=== PATIENT | female | born 1995 | race Caucasian/White ===

== ENCOUNTER 2018-12-20 17:24 | Emergency (ER) | payer BC ==
--- NOTE | 2018-12-20 17:28 | EDM.PDOC ---
<Mere Cooley - Last Filed: 12/20/18 17:56> ED HPI GENERAL MEDICAL PROBLEM - General Stated Complaint: UTI Time Seen by Provider: 12/20/18 17:28 - History of Present Illness INITIAL COMMENTS - FREE TEXT/NARRATIVE: UA is negative patient is being discharged stable. - Related Data Allergies Allergy/AdvReac Type Severity Reaction Status Date / Time Sulfa (Sulfonamide Allergy Other Verified 12/20/18 17:37 Antibiotics) Home Meds: Home Meds . [No Known Home Meds] 12/20/18 [History] ED ROS GENERAL - Review of Systems Review Of Systems: See Below ED EXAM, RENAL/ - Physical Exam Exam: See Below Course - Vital Signs Last Recorded V/S: Last Vital Signs Temp 96.0 F 12/20/18 17:35 Pulse 94 12/20/18 18:04 Resp 16 12/20/18 18:04 BP 114/78 12/20/18 18:04 Pulse Ox 96 12/20/18 18:04 - Orders/Labs/Meds Labs: Laboratory Tests 12/20/18 Range/Units 17:40 Urine Color YELLOW Urine Appearance CLEAR Urine pH 5.0 (5.0-8.0) Ur Specific Mcnary 1.025 (1.001-1.035) Urine Protein NEGATIVE (NEGATIVE) mg/dL Urine Glucose (UA) NEGATIVE (NEGATIVE) mg/dL Urine Ketones NEGATIVE (NEGATIVE) mg/dL Urine Occult Blood NEGATIVE (NEGATIVE) Urine Nitrite NEGATIVE (NEGATIVE) Urine Bilirubin NEGATIVE (NEGATIVE) Urine Urobilinogen 0.2 (<2.0) EU/dL Ur Leukocyte Esterase NEGATIVE (NEGATIVE) Departure - Departure Time of Disposition: 17:57 Disposition: Home, Self-Care 01 Condition: Good Clinical Impression: Dysuria - Discharge Information *PRESCRIPTION DRUG MONITORING PROGRAM REVIEWED*: No *COPY OF PRESCRIPTION DRUG MONITORING REPORT IN PATIENT MARCELLE: No Instructions: Dysuria Referrals: PCP,Unknown [Primary Care Provider] - Forms: ED Department Discharge Additional Instructions: The following information is given to patients seen in the emergency department who are being discharged to home. This information is to outline your options for follow-up care. We provide all patients seen in our emergency department with a follow-up referral. The need for follow-up, as well as the timing and circumstances, are variable depending upon the specifics of your emergency department visit. If you don't have a primary care physician on staff, we will provide you with a referral. We always advise you to contact your personal physician following an emergency department visit to inform them of the circumstance of the visit and for follow-up with them and/or the need for any referrals to a consulting specialist. The emergency department will also refer you to a specialist when appropriate. This referral assures that you have the opportunity for follow-up care with a specialist. All of these measure are taken in an effort to provide you with optimal care, which includes your follow-up. Under all circumstances we always encourage you to contact your private physician who remains a resource for coordinating your care. When calling for follow-up care, please make the office aware that this follow-up is from your recent emergency room visit. If for any reason you are refused follow-up, please contact the [facility] Emergency Department at and asked to speak to the emergency department charge nurse. Take meds as directed, follow up with your primary care physician, return to ER if symptoms worsen or change. [facility] [place] [id number] <Cherrie Mares E - Last Filed: 12/21/18 10:42> ED HPI GENERAL MEDICAL PROBLEM - General Source of Information: Reports: Patient History Limitations: Reports: No Limitations - History of Present Illness INITIAL COMMENTS - FREE TEXT/NARRATIVE: HISTORY AND PHYSICAL: History of present illness: Patient is a 23-year-old female who presents to the emergency room with complaints of dysuria and left low abdominal pain. She states that she was recently see by OBGYN and had full work up for LLQ pain, but continues to have discomfort. Patient denies any fever, chills, headache, change in vision, syncope or near syncope. Denies any chest pain, back pain, shortness of breath or cough. Denies any nausea, vomiting, diarrhea, constipation. Has not noted any blood in urine or stool. Patient has been eating and drinking appropriately. Review of systems: As per history of present illness and below otherwise all systems reviewed and negative. Past medical history: As per history of present illness and as reviewed below otherwise noncontributory. Surgical history: As per history of present illness and as reviewed below otherwise noncontributory. Social history: See social history for further information Family history: As per history of present illness and as reviewed below otherwise noncontributory. Physical exam: General: Well-developed and well-nourished 23-year-old female. Alert and oriented. Nontoxic appearing and in no acute distress. HEENT: Atraumatic, normocephalic, pupils equal and reactive bilaterally, negative for conjunctival pallor or scleral icterus, mucous membranes moist, trachea midline. No drooling or trismus noted. No meningeal signs. No hot potato voice noted. Lungs: Clear to auscultation, breath sounds equal bilaterally, chest nontender. Heart: S1S2, regular rate and rhythm without overt murmur Abdomen: Soft, nondistended, nontender. Negative for masses or hepatosplenomegaly. Negative for costovertebral tenderness. Pelvis: Stable nontender. Skin: Intact, warm, dry. No lesions or rashes noted. Extremities: Atraumatic, moves all extremities per self without difficulty or deficits, negative for cords or calf pain. Neurovascular unremarkable. Neuro: Awake, alert, oriented. Cranial nerves II through XII unremarkable. Cerebellum unremarkable. Motor and sensory unremarkable throughout. Exam nonfocal. Notes: Supportive care measures were reviewed and discussed. Voices understanding and is agreeable to plan of care. Denies any further questions or concerns at this time. Diagnostics: UA Therapeutics: None Prescription: None Impression: Dysuria Plan: 1. Please use Tylenol and/or Ibuprofen as needed for pain and fever management. 2. Get plenty of Rest. Encourage fluids to prevent dehydration. 3. Please follow up with your primary care provider. Return to the ED as needed as discussed. Definitive disposition and diagnosis as appropriate pending reevaluation and review of above. Left Lower Abdomen Pain Score (Numeric/FACES): 7 Course - Vital Signs Last Recorded V/S: Last Vital Signs Temp 96.0 F 12/20/18 17:35 Pulse 94 12/20/18 18:04 Resp 16 12/20/18 18:04 BP 114/78 12/20/18 18:04 Pulse Ox 96 12/20/18 18:04 - Orders/Labs/Meds Labs: Laboratory Tests 12/20/18 Range/Units 17:40 Urine Color YELLOW Urine Appearance CLEAR Urine pH 5.0 (5.0-8.0) Ur Specific Mcnary 1.025 (1.001-1.035) Urine Protein NEGATIVE (NEGATIVE) mg/dL Urine Glucose (UA) NEGATIVE (NEGATIVE) mg/dL Urine Ketones NEGATIVE (NEGATIVE) mg/dL Urine Occult Blood NEGATIVE (NEGATIVE) Urine Nitrite NEGATIVE (NEGATIVE) Urine Bilirubin NEGATIVE (NEGATIVE) Urine Urobilinogen 0.2 (<2.0) EU/dL Ur Leukocyte Esterase NEGATIVE (NEGATIVE)
== END 2018-12-20 18:05 | disposition home or self-care (01) ==
LOC: MW.ED 17:24
DX: R30.0 Dysuria (principal); R10.32 Left lower quadrant pain
CPT/HCPCS: 81003; 99282; 99284

== ENCOUNTER 2019-01-26 10:39 | Day surgery (SDC) | payer BC ==
[~2019-01-26 10:39] MED LIST: Lactated Ringers 1,000 ML IV SCH; Lidocaine 2% 5 ML SDV ONE; Midazolam 1 MG/ML 2 ML SDV ONE; Propofol 200 MG/20 ML SDV ONE; Sodium Chloride 0.9% 10 ML SDV IV PRN; Sodium Chloride 0.9% 10 ML Syringe FLUSH PRN; Sodium Chloride 0.9% 2.5 ML Syringe FLUSH PRN; fentaNYL 100 MCG/2 ML SDV ONE
--- NOTE | 2019-01-26 11:24 | PCM.PREANE ---
Preanesthetic Assessment - Anesthesia/Transfusion/Family Hx Anesthesia History: Prior Anesthesia Without Reaction Family History of Anesthesia Reaction: No Transfusion History: No Prior Transfusion(s) - Review of Systems General: No Symptoms Pulmonary: No Symptoms Cardiovascular: No Symptoms Gastrointestinal: Difficulty Swallowing Neurological: No Symptoms Other: Reports: None - Physical Assessment NPO Status Date: 01/25/19 Height: 5 ft 6 in Weight: 92.533 kg ASA Class: 1 Mental Status: Alert & Oriented x3 Airway Class: Mallampati = 2 Dentition: Reports: Normal Dentition ROM/Head Extension: Full Lungs: Clear to Auscultation, Normal Respiratory Effort Cardiovascular: Regular Rate, Regular Rhythm - Lab Values: Laboratory Last Values Urine HCG, Qual NEGATIVE (NEGATIVE) 01/26/19 10:35 - Allergies Allergies/Adverse Reactions: Allergies Allergy/AdvReac Type Severity Reaction Status Date / Time Sulfa (Sulfonamide Allergy Swelling Verified 01/22/19 11:36 Antibiotics) - Acknowledgements Anesthesia Type Planned: General Anesthesia Pt an Appropriate Candidate for the Planned Anesthesia: Yes Alternatives and Risks of Anesthesia Discussed w Pt/Guardian: Yes Pt/Guardian Understands and Agrees with Anesthesia Plan: Yes Additional Comments: PLAN: tiva PreAnesthesia Questionnaire - Past Health History Medical/Surgical History: Denies Medical/Surgical History HEENT History: Reports: None Cardiovascular History: Reports: None Respiratory History: Reports: Sleep Apnea Other Respiratory History: "mild sleep apnea" does not use CPAP Gastrointestinal History: Reports: Other (See Below) Other Gastrointestinal History: dysphagia Genitourinary History: Reports: Renal Calculus Musculoskeletal History: Reports: Back Pain, Chronic Neurological History: Reports: Concussion Psychiatric History: Reports: None Endocrine/Metabolic History: Reports: Obesity/BMI 30+ Hematologic History: Reports: None Immunologic History: Reports: None Oncologic (Cancer) History: Reports: None Dermatologic History: Reports: None - Past Surgical History Head Surgeries/Procedures: Reports: None HEENT Surgical History: Reports: None Cardiovascular Surgical History: Reports: None Respiratory Surgical History: Reports: None GI Surgical History: Reports: Appendectomy, Bariatric Procedure, Cholecystectomy , EGD, Other (See Below) Other GI Surgeries/Procedures: ingrid-en-Y gastric bypass, EGD with dilation x5 Endocrine Surgical History: Reports: None Neurological Surgical History: Reports: None Musculoskeletal Surgical History: Reports: None Oncologic Surgical History: Reports: None Dermatological Surgical History: Reports: None - SUBSTANCE USE Smoking Status *Q: Former Smoker Recreational Drug Use History: No - HOME MEDS Home Medications: Home Meds Levonorgestrel [Ellen] 1 device VAG ONETIME 01/20/19 [History] - CURRENT (IN HOUSE) MEDS Current Meds: Current Medications Lactated Ringer's (Ringers, Lactated) 1,000 mls @ 125 mls/hr IV ASDIRECTED KATHE Sodium Chloride (Saline Flush) 10 ml FLUSH ASDIRECTED PRN PRN Reason: Keep Vein Open Sodium Chloride (Saline Flush) 2.5 ml FLUSH ASDIRECTED PRN PRN Reason: Keep Vein Open Sodium Chloride (Saline Flush) 10 ml FLUSH ASDIRECTED PRN PRN Reason: Keep Vein Open Sodium Chloride (Saline Flush) 2.5 ml FLUSH ASDIRECTED PRN PRN Reason: Keep Vein Open Sodium Chloride (Normal Saline) 10 ml IV ASDIRECTED PRN PRN Reason: IV Use Discontinued Medications Fentanyl (Sublimaze) Confirm Administered Dose 100 mcg .ROUTE .STK-MED ONE Stop: 01/26/19 07:37 Lidocaine (Xylocaine-Mpf 2%) Confirm Administered Dose 5 ml .ROUTE .STK-MED ONE Stop: 01/26/19 07:37 Midazolam HCl (Versed 1 Mg/Ml) Confirm Administered Dose 2 mg .ROUTE .STK-MED ONE Stop: 01/26/19 07:37 Propofol (Diprivan 20 Ml) Confirm Administered Dose 400 mg .ROUTE .STK-MED ONE Stop: 01/26/19 07:37
--- NOTE | 2019-01-26 12:41 | PCM.OPNOTE ---
- General Post-Op/Procedure Note Date of Surgery/Procedure: 01/26/19 Operative Procedure(s): Diagnostic EGD Findings: Normal esophagus, normal GJ anastomosis Pre Op Diagnosis: Dysphagia Post-Op Diagnosis: same Anesthesia Technique: MAC Primary Surgeon: Cynthia Edward Condition: Good
--- NOTE | 2019-01-26 12:42 | PCM48HPAN ---
Post Anesthesia Note - EVALUATION WITHIN 48HRS OF ANESTHETIC Vital Signs in Normal Range: Yes Patient Participated in Evaluation: Yes Respiratory Function Stable: Yes Airway Patent: Yes Cardiovascular Function Stable: Yes Hydration Status Stable: Yes Pain Control Satisfactory: Yes Nausea and Vomiting Control Satisfactory: Yes Mental Status Recovered: Yes Vital Signs: Last Vital Signs Temp 97.2 F 01/26/19 12:19 Pulse 60 01/26/19 12:34 Resp 9 L 01/26/19 12:34 BP 100/63 01/26/19 12:34 Pulse Ox 100 01/26/19 12:34
--- NOTE | 2019-01-26 12:42 | PCM.POSTAN ---
POST ANESTHESIA ASSESSMENT - MENTAL STATUS Mental Status: Alert, Oriented - VITAL SIGNS Vital Signs: Last Vital Signs Temp 97.2 F 01/26/19 12:19 Pulse 60 01/26/19 12:34 Resp 9 L 01/26/19 12:34 BP 100/63 01/26/19 12:34 Pulse Ox 100 01/26/19 12:34 - RESPIRATORY Respiratory Status: Respiratory Rate WNL, Airway Patent, O2 Saturation Stable - CARDIOVASCULAR CV Status: Pulse Rate WNL, Blood Pressure Stable - GASTROINTESTINAL GI Status: No Symptoms - POST OP HYDRATION Hydration Status: Adequate & Stable
--- NOTE | 2019-01-28 15:06 | OR ---
SURGEON: CYNTHIA EDWARD MD DATE OF PROCEDURE: 01/26/2019 PREOPERATIVE DIAGNOSIS: Dysphagia. POSTOPERATIVE DIAGNOSIS: Dysphagia. PROCEDURE PERFORMED: Diagnostic esophagogastroduodenoscopy with biopsies. PRIMARY SURGEON: Cynthia Edward MD. ANESTHESIA: MAC. INSTRUMENT USED: Olympus endoscope. EXTENT OF EXAM: 50 cm past the teeth into the Grace limb. PREPARATION: Good. LIMITATIONS: None. INDICATIONS: The patient is a 23-year-old female who presents with dysphagia. Her past medical history significant for Grace-en-Y gastric bypass. The patient had a CT scan of the abdomen, which showed no significant pathology to explain her dysphagia. I explained the need for a diagnostic EGD. I explained the procedure, expected perioperative course, and risks including bleeding, infection, or damage to surrounding structures including perforation. The patient verbalized understanding and wishes to proceed. PROCEDURE IN DETAIL: The patient was brought into the endoscopy suite and placed in a beach chair position. A time-out was completed verifying the patient's name, age, date of , allergies, and procedure to be performed. Monitored anesthesia care was induced and a bite block was placed in the patient's mouth. Continuous oxygen was provided via nasal cannula throughout the procedure. After adequate sedation was achieved, a well-lubricated endoscope was placed in the patient's mouth and advanced under direct visualization into the Grace limb. This appeared normal, healthy, and pink. I was able to go 50 cm past the teeth. A photograph of this was taken. The scope was then fully withdrawn while examining the color, texture, anatomy, and integrity of mucosa of the upper GI tract. The GJ anastomosis appeared healthy, patent with no evidence of ulceration. The gastric pouch itself showed no signs of inflammation or ulceration. A biopsy was taken of the gastric pouch and sent to Pathology labeled as stomach biopsy. The scope was brought into the distal esophagus. A photograph was taken of the Z-line. This appeared normal. The distal esophageal mucosa did not appear grossly inflamed. A biopsy of it was taken and sent to Pathology labeled as distal esophagus. The remainder of the esophagus appeared normal and I saw no other evidence of pathology. The scope was removed and the procedure terminated. The patient tolerated the procedure well and was transferred to the PACU in stable condition. ENDOSCOPIC DIAGNOSIS: Dysphagia. RECOMMENDATIONS: Follow up in clinic in 2 weeks. LAMIN KRAMER /[id number]
== END 2019-01-26 13:30 | disposition home or self-care (01) ==
LOC: MW.SDS 10:39
PROVIDERS: ATTEND Surgery
DX: R13.10 Dysphagia, unspecified (principal); Z88.2 Allergy status to sulfonamides
CPT/HCPCS: 43239; 81025; J2001; J2250; J2704; J3010; J7120

== ENCOUNTER 2019-04-08 18:15 | Emergency (ER) | payer BC ==
--- NOTE | 2019-04-08 18:28 | EDM.PDOC ---
ED HPI GENERAL MEDICAL PROBLEM - General Chief Complaint: Neck Problem Stated Complaint: pain down left arm Time Seen by Provider: 04/08/19 18:28 Source of Information: Reports: Patient History Limitations: Reports: No Limitations - History of Present Illness INITIAL COMMENTS - FREE TEXT/NARRATIVE: Patient is a 23-year-old female who is complaining of having left-sided upper back pain with radiculopathy to her left upper extremity. This is been going on chronically but is been worse recently. Patient feels she made her symptoms worse when she turned her head suddenly today. Patient has a history of spinal stenosis. She has been seen by a neurologist and supposed to have a mental stimulator placed. Patient has been doing no treatment for above symptoms recently. She has recently moved to the area and has no provider. Patient also states that occasionally when she sleeps she will wake up with lower extremity numbness and has been incontinent of her urine at times though has no symptoms of this currently and has no saddle numbness consistent with cauda equina. Onset: Today Duration: Getting Worse Location: Reports: Back Quality: Reports: Burning, Throbbing Severity: Severe Improves with: Reports: None Worsens with: Reports: Movement Context: Reports: Activity Associated Symptoms: Reports: No Other Symptoms neck Pain Score (Numeric/FACES): 2 - Related Data Allergies Allergy/AdvReac Type Severity Reaction Status Date / Time Sulfa (Sulfonamide Allergy Swelling Verified 01/22/19 11:36 Antibiotics) Home Meds: Home Meds Cyclobenzaprine [Flexeril] 10 mg PO TID PRN #14 tab 04/08/19 [Rx] Hydrocodone/Acetaminophen [[place] 5-325 Tablet] 1 each PO Q6HR PRN #14 tablet [Rx] Lidocaine 5% [Lidoderm 5%] 1 patch TOP DAILY PRN #14 patch 04/08/19 [Rx] predniSONE 20 mg PO WITHBREAKFAST #7 tab 04/08/19 [Rx] Past Medical History - Past Health History Medical/Surgical History: Denies Medical/Surgical History HEENT History: Reports: None Cardiovascular History: Reports: None Respiratory History: Reports: Sleep Apnea Other Respiratory History: "mild sleep apnea" does not use CPAP Gastrointestinal History: Reports: Other (See Below) Other Gastrointestinal History: dysphagia Genitourinary History: Reports: Renal Calculus Musculoskeletal History: Reports: Back Pain, Chronic Neurological History: Reports: Concussion Psychiatric History: Reports: None Endocrine/Metabolic History: Reports: Obesity/BMI 30+ Hematologic History: Reports: None Immunologic History: Reports: None Oncologic (Cancer) History: Reports: None Dermatologic History: Reports: None - Past Surgical History Head Surgeries/Procedures: Reports: None HEENT Surgical History: Reports: None Cardiovascular Surgical History: Reports: None Respiratory Surgical History: Reports: None GI Surgical History: Reports: Appendectomy, Bariatric Procedure, Cholecystectomy , EGD, Other (See Below) Other GI Surgeries/Procedures: ingrid-en-Y gastric bypass, EGD with dilation x5 Endocrine Surgical History: Reports: None Neurological Surgical History: Reports: None Musculoskeletal Surgical History: Reports: None Oncologic Surgical History: Reports: None Dermatological Surgical History: Reports: None Social & Family History - Family History Family Medical History: Noncontributory ED ROS GENERAL - Review of Systems Review Of Systems: See Below Constitutional: Reports: No Symptoms HEENT: Reports: No Symptoms Respiratory: Reports: No Symptoms Cardiovascular: Reports: No Symptoms Endocrine: Reports: No Symptoms GI/Abdominal: Reports: No Symptoms : Reports: No Symptoms. Denies: Incontinence Musculoskeletal: Reports: Neck Pain, Back Pain (Left-sided) Skin: Reports: No Symptoms Neurological: Reports: Paresthesia (Left upper extremity.) Psychiatric: Reports: No Symptoms ED EXAM, UPPER BACK/NECK PAIN - Physical Exam Exam: See Below Exam Limited By: No Limitations General Appearance: Alert, Mild Distress Head Exam: Atraumatic, Normocephalic Neck Exam: Limited Range of Motion, Muscle Spasm (Left-sided greater than right. ), Paraspinous Muscle Tender Cardiovascular/Respiratory: Regular Rate, Rhythm Back Exam: Decreased Range of Motion, Muscle Spasm, Paraspinal Tenderness (Left- sided). No: Vertebral Tenderness Extremities: Normal Inspection Neurologic: No Motor/Sensory Deficits Psychiatric: Depressed Mood Skin Exam: Normal Color Course - Vital Signs Last Recorded V/S: Last Vital Signs Temp 36.6 C 04/08/19 18:21 Pulse 97 04/08/19 18:21 Resp 20 04/08/19 18:21 BP 145/89 H 04/08/19 18:21 Pulse Ox 99 04/08/19 18:21 - Orders/Labs/Meds Orders: Active Orders 24 hr Category Date Time Status Lidocaine 5% [Lidoderm 5%] Med 04/08/19 18:37 Once 700 mg TOP ONETIME ONE predniSONE Med 04/08/19 18:37 Once 60 mg PO ONETIME ONE Medication Orders Lidocaine (Lidoderm 5%) 700 mg TOP ONETIME ONE Stop: 04/08/19 18:38 Prednisone (Prednisone) 60 mg PO ONETIME ONE Stop: 04/08/19 18:38 Meds: Medications Generic Name Dose Route Start Last Admin Trade Name Shay PRN Reason Stop Dose Admin Lidocaine 700 mg 04/08/19 18:37 Lidoderm 5% TOP 04/08/19 18:38 ONETIME ONE Prednisone 60 mg 04/08/19 18:37 Prednisone PO 04/08/19 18:38 ONETIME ONE - Re-Assessments/Exams Free Text/Narrative Re-Assessment/Exam: 04/08/19 18:45 I am starting patient on prednisone and will give her prescriptions for Flexeril and [place]. I am recommending she use heat and massage as tolerated and follow-up with a neurologist and possibly a neurosurgeon. I will give her Dr. Cummings name. Patient will also be given some Lidoderm patches. Return to emergency department if she is doing worse or not improving. Departure - Departure Time of Disposition: 18:46 Disposition: Home, Self-Care 01 Condition: Fair Clinical Impression: Spasm of thoracic back muscle, Radiculopathy of cervical region - Discharge Information Instructions: Neuropathic Pain, Muscle Cramps and Spasms, [id number] Referrals: PCP,None [Primary Care Provider] - Neema Cummings MD [Physician] - Forms: ED Department Discharge Additional Instructions: Heat and ibuprofen as directed. Massage as tolerated. Follow-up with neurologist and neurosurgeon for additional work-up and treatment. Prednisone, Flexeril and [place] as needed. Lidoderm patch if helping. Return to ER if worse. Care Plan Goals: The following information is given to patients seen in the emergency department who are being discharged to home. This information is to outline your options for follow-up care. We provide all patients seen in our emergency department with a follow-up referral. The need for follow-up, as well as the timing and circumstances, are variable depending upon the specifics of your emergency department visit. If you don't have a primary care physician on staff, we will provide you with a referral. We always advise you to contact your personal physician following an emergency department visit to inform them of the circumstance of the visit and for follow-up with them and/or the need for any referrals to a consulting specialist. The emergency department will also refer you to a specialist when appropriate. This referral assures that you have the opportunity for follow-up care with a specialist. All of these measure are taken in an effort to provide you with optimal care, which includes your follow-up. Under all circumstances we always encourage you to contact your private physician who remains a resource for coordinating your care. When calling for follow-up care, please make the office aware that this follow-up is from your recent emergency room visit. If for any reason you are refused follow-up, please contact the [facility] Emergency Department at and asked to speak to the emergency department charge nurse. Sepsis Event Note - Evaluation Sepsis Screening Result: No Definite Risk - Focused Exam Vital Signs: Vital Signs Temp Pulse Resp BP Pulse Ox 04/08/19 18:21 36.6 C 97 20 145/89 H 99 Date Exam was Performed: 04/08/19 Time Exam was Performed: 18:38 - My Orders Last 24 Hours: My Active Orders 04/08/19 18:37 Lidocaine 5% [Lidoderm 5%] 700 mg TOP ONETIME ONE predniSONE 60 mg PO ONETIME ONE - Assessment/Plan Last 24 Hours: My Active Orders 04/08/19 18:37 Lidocaine 5% [Lidoderm 5%] 700 mg TOP ONETIME ONE predniSONE 60 mg PO ONETIME ONE
[2019-04-08] MEDS ORDERED: Lidocaine 5% 700 MG Patch TOP ONE (18:37)
[2019-04-08] MEDS ORDERED: predniSONE 20 MG Tab PO ONE (18:37)
== END 2019-04-08 19:17 | disposition home or self-care (01) ==
LOC: MW.ED 18:15
DX: M62.830 Muscle spasm of back (principal); M54.12 Radiculopathy, cervical region; E66.9 Obesity, unspecified; Z68.31 Body mass index [BMI] 31.0-31.9, adult; Z88.2 Allergy status to sulfonamides
CPT/HCPCS: 99283; A9270